=== PATIENT | female | born 1985 | race Two or more races ===

== ENCOUNTER 2017-02-23 20:43 | Emergency (ER) | payer OTHER ==
[~2017-02-23] VITALS: Ht 167.6 cm; Wt 68.0 kg
--- NOTE | 2017-02-23 20:56 | NUR ---
to bed 2 bib family members c/o syncope after taking a total of 3mg xanax. pt reports taking 0.5mg xanax tab at a time up to a total of 3mg, pt report syncopal episode while in the chair and woke uip in the floor. pt aaox4 no acute distress noted, resp even and unlabored. place pt on cardiac monitoring, continuous pox. pending er md ferraro.
--- NOTE | 2017-02-23 21:05 | NUR ---
jessica zheng at bedside to ronan hagen.
[2017-02-23] MEDS ORDERED: IV NS 0.9% 1,000 ML ONE (21:20)
[2017-02-23] MEDS ORDERED: IV SET PRIMARY 1 EA INFUS.SET MC ONE (21:20)
[2017-02-23 21:27] LABS: BASOPHILS # (AUTO) 0.1 /CMM (0.0-0.2); BASOPHILS % (AUTO) 0.8 % (0.0-2.0); EOSINOPHILS # (AUTO) 0.1 /CMM (0.0-0.7); HEMATOCRIT 42 % (33-45); HEMOGLOBIN 13.9 g/dL (11.5-14.8); LYMPHOCYTES # (AUTO) 2.8 /CMM (0.8-4.8); LYMPHOCYTES % (AUTO) 28.9 % (20.0-44.0); MEAN CORPUSCULAR HEMOGLOBIN 27 PG (26.0-33.0); MEAN CORPUSCULAR HGB CONC 33 g/dl (31.0-36.0); MEAN CORPUSCULAR VOLUME 83 fL (82-100); MONOCYTES # (AUTO) 0.6 /CMM (0.1-1.30); MONOCYTES % (AUTO) 6.6 % (2.0-12.0); NEUTROPHILS # (AUTO) 6.2 /CMM (1.8-8.9); NEUTROPHILS % (AUTO) 62.7 % (43.0-81.0); PLATELET COUNT (AUTO) 348 /CMM (150-450); RDW COEFFICIENT OF VARIATION 12.8 (11.5-15.0); RED BLOOD CELL COUNT(AUTO) 5.07 MIL/uL (4.0-5.2); WHITE BLOOD COUNT (AUTO) 9.8 K/uL (4.3-11.0)
[2017-02-23] MEDS ORDERED: IV NS 0.9% 1,000 ML BAG IV ONE (21:30)
[2017-02-23 21:34] LABS: CALCIUM, SERUM 9.4 mg/dL (8.5-10.1); CREATININE 0.9 mg/dL (0.6-1.3); POTASSIUM 3.1 mmol/L (3.5-5.1)
--- NOTE | 2017-02-23 22:23 | NUR ---
noted pt hr-140 lasting a few seconds and back on the 80's er md made aware. pt remains pain free at this time.
--- NOTE | 2017-02-23 22:47 | NUR ---
IV removed. Catheter intact and site benign. Pressure and 4x4 applied to site. No bleeding noted. ambulatory with a steady gait noted. pt aaox4 no acute distress noted, resp even and unlabored. pt s/o at bedsode to take pt home. 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 pt verbalize understanding.
[2017-02-23 22:48] VITALS: BP 128/61
== END 2017-02-23 22:50 | disposition home or self-care (01) ==
LOC: ER 20:46
DX: R55 Syncope and collapse (principal); R00.2 Palpitations; E87.6 Hypokalemia; Z88.0 Allergy status to penicillin
CPT/HCPCS: 36415; 80048; 82962; 84439; 84443; 84703; 85025; 93005; 96360; 99285; A4606; A6402; J7030; Z7610